=== PATIENT | female | born 1965 | race Caucasian/White ===

== ENCOUNTER 2022-05-18 11:49 | Outpatient (CLI) | payer OTHER, SELFPAY ==
[2022-05-24 13:25] LABS: JAK2 Qual Mutation by PCR Not Detected; JAK2 Qual, Source Not Provided
== END 2022-05-18 11:50 | disposition home or self-care (01) ==
PROVIDERS: PCP Physician Assistant Medical; Visit Provider Physician Assistant Medical
DX: D75.1 Secondary polycythemia (principal)
CPT/HCPCS: 81270

== ENCOUNTER 2023-06-01 14:24 | Outpatient (CLI) | payer OTHER, SELFPAY ==
--- NOTE | 2023-06-01 15:00 | US_ITS ---
Final Report Patient: SAMANTHA VENTURA Facility:?[facility] Patient ID:?[id number] Site Patient ID:?[id number]. Site :?[id number] Study:?US Abdomen RUQ-06/01/2023 3:21:38 PM Ordering Physician:GLADYS Final Report: INDICATION: elevated LFTs COMPARISON: none TECHNIQUE: Real time gordon scale imaging and color Doppler analysis was performed of the right upper quadrant. FINDINGS: The patient`s liver is of normal size and has mildly increased echogenicity. There is a normal appearance of the hepatic IVC and proximal abdominal aorta. There is no evidence of ascites. The gallbladder is absent. The common bile duct is of normal size and measures 6 mm in diameter at the level of the evangelist hepatis. The pancreas appears normal. There is no evidence of a stone or hydronephrosis within the right kidney. The right kidney measures 11.5 cm in length. IMPRESSION: Mild hepatic steatosis. Status post cholecystectomy without biliary obstruction. Dictated by Mikael Morales MD @ 06/02/2023 1:43:40 PM (Electronic Signature)
== END 2023-06-01 14:25 | disposition home or self-care (01) ==
PROVIDERS: PCP Physician Assistant Medical; Visit Provider Obstetrics & Gynecology
DX: R79.89 Other specified abnormal findings of blood chemistry (principal); K76.0 Fatty (change of) liver, not elsewhere classified
CPT/HCPCS: 76705

== ENCOUNTER 2024-11-09 12:28 | Outpatient (CLI) | payer OTHER, SELFPAY ==
--- NOTE | 2024-11-09 13:00 | CRLHL7_ITS ---
For Patients: As a result of the Century Cures Act, medical imaging exams and procedure reports are released immediately into your electronic medical record. You may view this report before your referring provider. If you have questions, please contact your health care provider. INDICATION: Localized enlarged lymph nodes. TECHNIQUE: CT of the neck soft tissues performed with IV contrast. Contrast: 66 cc Isovue 370. COMPARISON: None available at this institution. FINDINGS: The nasopharynx, oropharynx and hypopharynx appear unremarkable. The supraglottic, glottic and infraglottic spaces are preserved. The parotid and submandibular glands appear unremarkable. Right thyroid nodule, measuring up to 6 mm. Scattered prominent, however enlarged by CT size criteria nodes. The visualized major vascular structures appear intact. The visualized intracranial components appear grossly intact. Visualized orbits and contents appear unremarkable. Minimal paranasal sinus mucosal disease. Lung apices are clear. Mild spondylosis of the cervical spine. IMPRESSION: 1. Scattered nonspecific prominent, nonenlarged by CT size criteria, lymph nodes. These could represent a reactive process. Consider interval follow-up with ultrasound if there is continued clinical concern. 2. No neck mass or fluid collection identified. Please note that all CT scans at this facility use dose modulation, iterative reconstruction, and/or weight-based dosing when appropriate to reduce radiation dose to as low as reasonably achievable. Dictated by Myles Jerez MD @ 11/12/2024 10:17:06 AM (Electronically Signed)
== END 2024-11-09 12:29 | disposition home or self-care (01) ==
LOC: CT 12:29
PROVIDERS: PCP Physician Assistant Medical; Visit Provider Physician Assistant Medical
DX: R59.0 Localized enlarged lymph nodes (principal)
CPT/HCPCS: 70491; Q9967

== ENCOUNTER 2025-02-20 11:25 | Outpatient (CLI) | payer OTHER, SELFPAY ==
--- NOTE | 2025-02-20 11:45 | CRLHL7_ITS ---
For Patients: As a result of the Century Cures Act, medical imaging exams and procedure reports are released immediately into your electronic medical record. You may view this report before your referring provider. If you have questions, please contact your health care provider. Indication: Locally enlarged lymph nodes Technique: Grayscale and color Doppler ultrasound of the neck soft tissues performed bilaterally. Comparison: CT 11/09/2024 Findings: Left mid posterior lymph node measures 1.4 x 0.3 x 0.7 cm with normal color flow and central fatty hilum. Upper left neck lymph node measures 8 x 5 x 5 millimeters. Right cervical lymph node measures 10 x 4 x 6 millimeters. No abnormal vascularity. Impression: Normal bilateral cervical lymph nodes. Dictated by Mikael Morales MD @ 02/20/2025 4:26:39 PM (Electronically Signed)
== END 2025-02-20 11:26 | disposition home or self-care (01) ==
LOC: US 11:26
PROVIDERS: PCP Physician Assistant Medical; Visit Provider Physician Assistant Medical
DX: R59.0 Localized enlarged lymph nodes (principal)
CPT/HCPCS: 76536